=== PATIENT | female | born 1995 | race Asian ===

== ENCOUNTER 2022-09-22 04:04 | Inpatient (IN) | payer SELFPAY ==
[2022-09-22] MEDS ORDERED: Lidocaine 1% 50 ML MDV INJECT PRN (06:29)
[2022-09-22] MEDS ORDERED: Misoprostol 200 MCG Tab PO PRN (06:29)
[2022-09-22] MEDS ORDERED: Butorphanol 1 MG/ML SDV IVPUSH PRN (06:29)
[2022-09-22] MEDS ORDERED: Methylergonovine 0.2 MG/1 ML Amp IM PRN (06:29)
[2022-09-22] MEDS ORDERED: Sodium Chloride 0.9% 20 ML SDV IV PRN (06:29)
[2022-09-22] MEDS ORDERED: Sodium Chloride 0.9% 2.5 ML Syringe FLUSH PRN (06:29)
[2022-09-22] MEDS ORDERED: Ondansetron 4 MG/2 ML SDV IVPUSH PRN (06:29)
[2022-09-22] MEDS ORDERED: Sodium Chloride 0.9% 10 ML Syringe FLUSH PRN (06:29)
[2022-09-22] MEDS ORDERED: Water For Irrigation,Sterile 1,000 ML Container IRR PRN (06:29)
[2022-09-22] MEDS ORDERED: Carboprost Tromethamine 250 MCG/1 ML Amp IM PRN (06:29)
[2022-09-22] MEDS ORDERED: Tranexamic Acid 1,000 MG in Sodium Chloride 0.9% 100 ML IV PRN (06:29)
[2022-09-22] MEDS ORDERED: Lactated Ringers 1,000 ML IV SCH (06:30)
[2022-09-22] MEDS ORDERED: Oxytocin/0.9 % Sodium Chloride 30 UNIT/500 ML BAG IV SCH ×2 (06:30→06:45)
[2022-09-22] MEDS ORDERED: Terbutaline 1 MG/ML SDV SUBCUT PRN (06:34)
[2022-09-22 07:04] LABS: POTASSIUM,K 3.9 mmol/L (3.5-5.1)
[2022-09-22] MEDS ORDERED: Acetaminophen 500 MG Tab PO PRN ×2 (08:58)
[2022-09-22] MEDS ORDERED: Witch Hazel Medicated Pads 40/Jar TOP PRN (08:58)
[2022-09-22] MEDS ORDERED: Benzocaine/Menthol 20%-0.5% Spray 78 GM Cannister TOP PRN (08:58)
[2022-09-22] MEDS ORDERED: Docusate Sodium 100 MG Cap PO PRN (08:58)
[2022-09-22] MEDS ORDERED: Ibuprofen 800 MG Tab PO PRN (08:58)
[2022-09-22] MEDS ORDERED: oxyCODONE 5 MG Tab PO PRN (08:58)
[2022-09-22] MEDS ORDERED: Ibuprofen 400 MG Tab PO PRN (08:58)
[2022-09-22] MEDS ORDERED: Bisacodyl 10 MG Supp RECTAL PRN (08:58)
[2022-09-22] MEDS ORDERED: Lanolin 100% Cream 7 GM Tube TOP PRN (08:58)
[2022-09-22] MEDS ORDERED: Phenylephrine HCl In 0.9% NaCl 1 MG/10 ML Vial IVPUSH PRN (09:11)
[2022-09-22] MEDS ORDERED: ePHEDrine 50 MG/ML SDV IVPUSH PRN ×2 (09:11)
[2022-09-22] MEDS ORDERED: Ropivacaine HCl/PF 400 MG in Premix Bag 1 BAG EPIDUR SCH (09:15)
[2022-09-22] MEDS ORDERED: Phenylephrine HCl In 0.9% NaCl 1 MG/10 ML Vial IVPUSH SCH (09:15)
== END 2022-09-23 12:05 | disposition home or self-care (01) | DRG 807 ==
LOC: MW.OBCHECK 04:04 → MW.OB 04:05 → MW.OBCHECK 06:29 → OBSVTOIN 08:30 → MW.OB 15:15
PROVIDERS: ADMIT Obstetrics & Gynecology; ATTEND Obstetrics & Gynecology
PROC: 10E0XZZ Delivery of Products of Conception, External Approach (ICD-10-PCS; principal; 2022-09-22)
DX: O48.0 Post-term pregnancy (principal); Z37.0 Single live birth; Z3A.41 41 weeks gestation of pregnancy; O70.0 First degree perineal laceration during delivery; Z20.822 Contact with and (suspected) exposure to COVID-19
CPT/HCPCS: 36415; 59025; 59409; 80053; 81003; 82803; 85014; 85018; 85027; 86592; 86850; 86900; 86901; A9270-GY; U0002

== ENCOUNTER 2025-02-28 02:44 | Observation (INO) | payer OTHER ==
[2025-02-28 03:14] LABS: BASOPHILS PERCENT AUTO 0.6 % (0.0-1.0); EOSINOPHILS PERCENT AUTO 1.8 % (0.0-6.0); HEMATOCRIT 35.4 % (37.0-47.0); HEMOGLOBIN 12.1 g/dL (12.0-16.0); IMMATURE GRAN ABSOLUTE AUTO 0.07 K/uL (0.00-0.05); IMMATURE GRAN PERCENT AUTO 0.4 % (0.0-0.4); LYMPHOCYTES ABSOLUTE AUTO 2.98 K/uL (1.00-4.80); LYMPHOCYTES PERCENT AUTO 17.5 % (24.0-44.0); MEAN CORPUSCULAR HEMOGLOBIN 31.2 pg (28.0-32.0); MEAN CORPUSCULAR HGB CONC 34.2 g/dL (32.0-36.0); MEAN CORPUSCULAR VOLUME 91.2 fL (83.0-99.0); MEAN PLATELET VOLUME 8.7 fL (9.4-12.3); MONOCYTES ABSOLUTE AUTO 1.08 K/uL (0.00-0.80); MONOCYTES PERCENT AUTO 6.3 % (0.0-8.0); NEUTROPHILS ABSOLUTE AUTO 12.53 K/uL (1.80-7.70); NEUTROPHILS PERCENT AUTO 73.4 % (41.0-71.0); PLATELET COUNT,PLT 375 K/uL (150-400); RED BLOOD CELL COUNT 3.88 M/uL (4.10-5.30); WHITE BLOOD CELL COUNT,WBC 17.06 K/uL (3.9-11.3)
[2025-02-28] MEDS: Sodium Chloride 0.9% 1,000 ML IV ONE (03:16)
[2025-02-28 03:37] LABS: A/G RATIO 1.1 (0.9-1.6); ALBUMIN 3.7 g/dL (3.4-5.0); BILIRUBIN TOTAL 0.3 mg/dL (0.2-1.0); CALCIUM 8.1 mg/dL (8.5-10.1); CARBON DIOXIDE,CO2 24.3 mmol/L (21.0-32.0); CREATININE 0.8 mg/dL (0.6-1.0); EST CRCL DRUG DOSING (CG) 73.19 mL/min; POTASSIUM,K 3.8 mmol/L (3.5-5.1); PROTEIN TOTAL,TP 7.1 g/dL (6.4-8.2)
[2025-02-28 03:39] LABS: APPEARANCE,URINE CLEAR; BILIRUBIN,URINE NEGATIVE (NEGATIVE); COLOR,URINE YELLOW; GLUCOSE,URINE NEGATIVE (NEGATIVE); KETONES,URINE NEGATIVE (NEGATIVE); LEUKOCYTE ESTERASE,URINE SMALL (NEGATIVE); NITRITE,URINE NEGATIVE (NEGATIVE); OCCULT BLOOD,URINE LARGE (NEGATIVE); PH,URINE 5.5 (5.0-8.0); PROTEIN,URINE NEGATIVE (NEGATIVE); UROBILINOGEN,URINE 0.2 EU/dL (<2.0)
[2025-02-28 03:43] LABS: BACTERIA,URINE FEW (NEGATIVE); EPITHELIAL CELLS,URINE FEW (NONE-FEW); MUCUS,URINE LIGHT (NONE-MOD)
[2025-02-28] MEDS ORDERED: Ropivacaine 0.5% 5 MG/ML 30 ML SDV ONE (06:42)
[2025-02-28] MEDS ORDERED: Bupivacaine 0.25% 30 ML SDV ONE ×2 (06:42→07:34)
[2025-02-28] MEDS ORDERED: Lidocaine 2% 5 ML SDV ONE (06:45)
[2025-02-28] MEDS ORDERED: Rocuronium Bromide 50 MG/5 ML Syringe ONE ×2 (06:45→08:01)
[2025-02-28] MEDS ORDERED: Ondansetron 4 MG/2 ML SDV ONE (06:45)
[2025-02-28] MEDS ORDERED: Ketorolac 30 MG/ML SDV ONE (06:45)
[2025-02-28] MEDS ORDERED: Dexamethasone 4 MG/ML 5 ML MDV ONE (06:45)
[2025-02-28] MEDS ORDERED: Sugammadex Sodium 200 MG/2 ML VIAL IV ONE (06:45)
[2025-02-28] MEDS ORDERED: fentaNYL 100 MCG/2 ML SDV ONE ×2 (06:47→08:01)
[2025-02-28] MEDS ORDERED: Propofol 200 MG/20 ML SDV ONE (06:47)
[2025-02-28] MEDS ORDERED: Sodium Chloride 0.9% 20 ML ONE (06:52)
[2025-02-28] MEDS ORDERED: dexmedeTOMIDine HCl 200 MCG/2 ML SDV ONE (06:52)
[2025-02-28] MEDS ORDERED: Phenylephrine HCl In 0.9% NaCl 1 MG/10 ML Syringe IVPUSH PRN ×2 (07:12→07:42)
[2025-02-28] MEDS ORDERED: fentaNYL 50 MCG/ML SDV IVPUSH PRN ×2 (07:12→07:42)
[2025-02-28] MEDS ORDERED: Naloxone 0.4 MG/ML SDV IVPUSH PRN ×2 (07:12→07:42)
[2025-02-28] MEDS ORDERED: HYDROmorphone 1 MG/ML Syringe IVPUSH PRN ×2 (07:12→07:42)
[2025-02-28] MEDS ORDERED: Morphine 2 MG/ML SYRINGE IVPUSH PRN ×2 (07:12→07:42)
[2025-02-28] MEDS ORDERED: Ondansetron 4 MG/2 ML SDV IVPUSH PRN ×3 (07:12→09:25)
[2025-02-28] MEDS ORDERED: Albuterol 0.083% 2.5 MG/3 ML Neb Soln NEB PRN ×2 (07:12→07:42)
[2025-02-28] MEDS ORDERED: Metoclopramide 10 MG/2 ML SDV IVPUSH PRN ×2 (07:12→07:42)
[2025-02-28] MEDS ORDERED: Promethazine 25 MG/ML SDV IM PRN (09:25)
[2025-02-28] MEDS ORDERED: oxyCODONE 5 MG Tab PO PRN (09:25)
[2025-02-28] MEDS ORDERED: Morphine 4 MG/ML Syringe IVPUSH PRN (09:25)
[2025-02-28] MEDS: Ketorolac 30 MG/ML SDV IVPUSH ONE (10:32)
[2025-02-28] MEDS: Acetaminophen 500 MG Tab PO SCH (10:32)
[2025-02-28] MEDS: Ketorolac 30 MG/ML SDV IVPUSH SCH (13:28)
[2025-02-28] MEDS: Iopamidol 755 MG/ML 500 ML Multipack Bottle IVPUSH ONE (15:36)
[2025-03-01 06:00] LABS: BASOPHILS ABSOLUTE AUTO 0.05 K/uL (0.00-0.20); BASOPHILS PERCENT AUTO 0.4 % (0.0-1.0); EOSINOPHILS ABSOLUTE AUTO 0.11 K/uL (0.00-0.45); EOSINOPHILS PERCENT AUTO 0.8 % (0.0-6.0); HEMOGLOBIN 10.1 g/dL (12.0-16.0); IMMATURE GRAN ABSOLUTE AUTO 0.04 K/uL (0.00-0.05); IMMATURE GRAN PERCENT AUTO 0.3 % (0.0-0.4); LYMPHOCYTES ABSOLUTE AUTO 3.07 K/uL (1.00-4.80); MEAN CORPUSCULAR HEMOGLOBIN 31.9 pg (28.0-32.0); MEAN CORPUSCULAR HGB CONC 34.8 g/dL (32.0-36.0); MEAN CORPUSCULAR VOLUME 91.5 fL (83.0-99.0); MEAN PLATELET VOLUME 8.9 fL (9.4-12.3); NEUTROPHILS ABSOLUTE AUTO 8.88 K/uL (1.80-7.70); NEUTROPHILS PERCENT AUTO 66.5 % (41.0-71.0); PLATELET COUNT,PLT 342 K/uL (150-400); RED BLOOD CELL COUNT 3.17 M/uL (4.10-5.30); WHITE BLOOD CELL COUNT,WBC 13.35 K/uL (3.9-11.3)
[2025-03-01 06:22] LABS: CALCIUM 8.2 mg/dL (8.5-10.1); CARBON DIOXIDE,CO2 25.2 mmol/L (21.0-32.0); CREATININE 0.7 mg/dL (0.6-1.0); EST CRCL DRUG DOSING (CG) 83.64 mL/min; POTASSIUM,K 3.5 mmol/L (3.5-5.1)
== END 2025-03-01 09:07 | disposition home or self-care (01) ==
LOC: MW.ED 02:44 → MW.SDS 05:44 → MW.ED 07:09 → MW.MS 10:01
PROVIDERS: ADMIT Obstetrics & Gynecology; ATTEND Obstetrics & Gynecology
DX: O00.102 Left tubal pregnancy without intrauterine pregnancy (principal); O00.202 Left ovarian pregnancy without intrauterine pregnancy; O99.211 Obesity complicating pregnancy, first trimester
CPT/HCPCS: 36415; 59150; 76801; 80048; 80053; 81001; 84702; 84703; 85025; 86900; 86901; 87086; 96360; 99285; A9270; J0665; J1100; J1885; J2003; J2704; J2795; J3010; J7030; 00840; 64488; 99221; 99231; 99291; J2405; J3490